=== PATIENT | male | born 1965 | race Caucasian/White ===

== ENCOUNTER 2016-10-23 11:03 | Observation (INO) | payer OTHER ==
--- NOTE | ~2016-10-23 | HP ---
History And Physical [id number] [place]. [address] NAME: REJI FERNANDEZ : 67 STATUS : ADM IN [facility]#: [id number] AGE: 51 ADM/REG DATE : 10/23/16 MR#: [id number] REPORT SERV DATE: 10/23/16 DICTATED BY: GIDEONFAUSTO EDI DATE: 10/23/16 REPORT STATUS : Draft TRANSCRIBED BY: MODL DATE: 10/23/16 DATE OF ADMISSION: 10/23/2016 CHIEF COMPLAINT: Left lower extremity DVT. HISTORY OF PRESENT ILLNESS: This is a 51-year-old gentleman with history of coronary artery disease and chronic left leg wound, presenting with a left lower extremity DVT. The patient actually follows with Dr. Johnson for his chronic left leg wound that he has had for the past few months. From Dr. Johnson's office, ultrasound was ordered and he had it done today. The ultrasound actually showed a left lower extremity DVT in the popliteal vein. Internal Medicine consultation was thus requested for direct admission of this patient for further care. The patient otherwise has been asymptomatic. The patient denies having had any swelling, pain, or redness over his left lower extremity. The patient also denies any chest pain or shortness of breath. The patient also denies any recent travels. The patient denies any history of known malignancy. The patient also denies recent surgery or even smoking. There is also no family history of blood clots. REVIEW OF SYSTEMS: The patient denies any fevers or chills. Also, 14-point review of systems reviewed and negative, other than mentioned above. MEDICATIONS: 1. Lipitor 40 mg p.o. daily. 2. Ecotrin 325 mg p.o. daily. 3. Lopressor 50 mg p.o. daily. 4. Augmentin 875 mg p.o. b.i.d. x10 days, which was started on 10/19. ALLERGIES: NKDA. PAST MEDICAL HISTORY: 1. Coronary artery disease. 2. Hyperlipidemia. PAST SURGICAL HISTORY: Cardiac stents. FAMILY HISTORY: Negative. SOCIAL HISTORY: The patient does not smoke, the patient has quit smoking about 7 years ago. The patient consumes alcohol every once in a while. The patient does not use any illicit drugs. The patient lives at home with his . 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 PHYSICAL EXAMINATION: VITAL SIGNS: Temperature 98.1, blood pressure 181/99, pulse 48, respiratory rate is 18, saturating 96% on room air. NEUROLOGIC: The patient is alert and oriented x3 with no focal neurologic deficits. History And Physical [address] [place]. [address] NAME: REJI FERNANDEZ : 67 STATUS : ADM IN [facility]#: [id number] AGE: 51 ADM/REG DATE : 10/23/16 MR#: [id number] REPORT SERV DATE: 10/23/16 DICTATED BY: FAUSTO MENESES DATE: 10/23/16 REPORT STATUS : Draft TRANSCRIBED BY: MARCELLA DATE: 10/23/16 GENERAL: The patient is obese, awake, does not appear to be in acute distress and he is cooperative. NECK: No JVD. No lymphadenopathy. Normal thyroid. CHEST: No midline sternotomy scar and no tenderness to palpation. LUNGS: Clear to auscultation bilaterally with normal respiratory effort on room air. CARDIOVASCULAR: Regular rate and rhythm with no murmurs, rubs, or gallops and PMI is nondisplaced. ABDOMEN: Soft and nontender with active bowel sounds and no organomegaly. EXTREMITIES: No edema. Normal distal pulses. No calf tenderness. The patient's left lower extremity is the same as the right, and there is no more swelling or redness compared to the right. SKIN: Clean, dry, warm, and intact. The patient has 2 x 2 cm circular nonhealing chronic wound on his left leg on the medial side. LABORATORY DATA: There are no labs. ASSESSMENT: This is a 51-year-old gentleman with history of coronary artery disease as well as chronic nonhealing left leg wound, presenting with a left lower extremity deep vein thrombosis. 1. Left lower extremity deep vein thrombosis, acute. 2. Chronic left leg wound, nonhealing. 3. Coronary artery disease. 4. Hyperlipidemia. PLAN: The plan is to admit the patient under telemetry monitoring for observation overnight. The patient will be started on anticoagulation with Lovenox as well as Coumadin. I will ask Case Management to evaluate the patient for potential NOAC therapy, instead of Coumadin. Otherwise, for the rest of the stable past medical conditions including coronary artery disease, hyperlipidemia, chronic left leg wound, et al., I will continue home medications. Standard DVT prophylaxis. The patient is full code at this time. YSC/MODL Fausto Meneses MD / [id number] CC: MD Jose Palacios III, M.D.
--- NOTE | ~2016-10-23 | DS ---
Discharge Summary [id number] [facility] [place] [id number] NAME: REJI FERNANDEZ : 67 STATUS : DIS [facility] PAT#: [id number] AGE: 51 ADM/REG DATE : 10/23/16 MR#: [id number] REPORT SERV DATE: 10/25/16 DICTATED BY: FAUSTO MENESES DATE: 10/24/16 REPORT STATUS : Draft TRANSCRIBED BY: MODL DATE: 10/24/16 ADMISSION DATE: 10/23/2016 DISCHARGE DATE: 10/24/2016 DISCHARGE DIAGNOSES: 1. Acute left lower extremity DVT, below-knee. 2. Chronic left leg wound. 3. Coronary artery disease. 4. Hyperlipidemia. 5. Morbid obesity. CONSULTS: None. PROCEDURES: None. HOSPITAL COURSE: This is a 51-year-old gentleman who was admitted to the hospital after he was found to have a positive lower extremity ultrasound for DVT. The patient was found to have a left popliteal vein thrombosis. For details, please refer to my own H and P. In summary, the patient was initiated on Lovenox anticoagulation along with Coumadin. The patient was monitored overnight, and the patient was given a choice between NOAC versus Coumadin. Unfortunately, due to his poor insurance status, the patient could only qualify for Lovenox and Coumadin. As the patient does not have a primary care physician, Case Management was involved in getting patient Lovenox as well as Coumadin and Coumadin Clinic appointments. The patient is now being discharged home in stable condition with close outpatient followup plans. DISPOSITION: Home. DISCHARGE MEDICATIONS: 1. Lovenox 1 mg/kg subcu q.12 hours for the next four days. 2. Coumadin 5 mg p.o. daily, with repeat of PT and INR within five days of discharge. FOLLOWUP: 1. Please follow up with PCP which will be assigned to him in the next one to two weeks. 2. Please follow up with Coumadin clinic, as will be scheduled for him within five days of discharge. Total of 25 minutes spent in coordinating this patient's discharge today. DICTATED BY: MD MIRI Palacios/MARCELLA Discharge Summary [facility] [address] [place]. [id number] NAME: REJI FERNANDEZ : 67 STATUS : DIS [facility]ia PAT#: [id number] AGE: 51 ADM/REG DATE : 10/23/16 MR#: [id number] REPORT SERV DATE: 10/25/16 DICTATED BY: FAUSTO MENESES DATE: 10/24/16 REPORT STATUS : Draft TRANSCRIBED BY: [facility] DATE: 10/24/16 Fausto Meneses MD / [id number] CC: Fausto Meneses MD
[2016-10-23] MEDS ORDERED: LIPITOR40 PO (12:14)
[2016-10-23] MEDS ORDERED: ASAEC PO (12:14)
[2016-10-23] MEDS ORDERED: LOP50 PO (12:15)
[2016-10-23] MEDS ORDERED: AUG875 PO (12:15)
[2016-10-23 15:32] LABS: BASOPHILS 0.3 %; BASOPHILS ABSOLUTE 0.03 10/3/uL (0.0-0.16); EOSINOPHILS 3.6 %; EOSINOPHILS ABSOLUTE 0.33 10/3/uL (0.0-0.53); HEMATOCRIT 41.9 % (40.0-51.0); HEMOGLOBIN 13.4 g/dL (13.6-17.8); IMMATURE GRANULOCYTES 0.2 %; IMMATURE GRANULOCYTES ABSOLUTE 0.02 10/3/uL (0.0-0.11); LYMPHOCYTES 27.3 %; LYMPHOCYTES ABSOLUTE 2.47 10/3/uL (0.67-4.30); MEAN CORPUSCULAR HEMOGLOB 27.6 pg (26.0-34.0); MEAN CORPUSCULAR VOLUME 86.4 fL (80-100); MEAN PLATELET VOLUME 9.4 fL (9.2-13.0); MONOCYTES 8.1 %; MONOCYTES ABSOLUTE 0.73 10/3/uL (0.21-1.20); NEUTROPHILS 60.5 %; NEUTROPHILS ABSOLUTE 5.48 10/3/uL (2.02-8.40); PLATELET COUNT 187 10/3/uL (150-400); RBC DISTRIBUTION WIDTH 14.9 % (12.0-16.0); RED CELL COUNT 4.85 10/6/uL (4.7-6.1); WHITE BLOOD CELLS 9.1 10/3/uL (4.5-10.5)
[2016-10-23 15:35] LABS: MANUAL DIFF NO %
[2016-10-23 15:42] LABS: INTERNATIONAL NORMAL RATI 1.1 UNITS (-); PARTIAL THROMBO TIME 31.9 SEC (22.5-37.2); PROTIME (NOT ORD) 14.4 SEC (12.0-14.5)
[2016-10-23 15:43] LABS: CALCIUM, SERUM 9.2 MG/DL (8.5-10.4); CHLORIDE, SERUM 107 MMOL/L (96-112); CO2 (CARBON DIOXIDE) 27 MMOL/L (24-34); CREATININE 1.35 MG/DL (0.70-1.30); GFR AFRICAN AMERICAN 70 ML/MIN (>=60); GFR NON AFRICAN AMERICAN 61 ML/MIN (>=60); GLUCOSE, SERUM 86 MG/DL (60-99); POTASSIUM, SERUM 3.8 MMOL/L (3.5-5.3); SODIUM, SERUM 137 MMOL/L (135-148)
[2016-10-23 15:44] LABS: BUN (BLOOD UREA NITROGEN) 22 MG/DL (6-23)
[2016-10-24 06:15] LABS: BASOPHILS 0.2 %; BASOPHILS ABSOLUTE 0.02 10/3/uL (0.0-0.16); EOSINOPHILS 3.3 %; EOSINOPHILS ABSOLUTE 0.32 10/3/uL (0.0-0.53); HEMATOCRIT 42.5 % (40.0-51.0); HEMOGLOBIN 13.8 g/dL (13.6-17.8); IMMATURE GRANULOCYTES 0.2 %; IMMATURE GRANULOCYTES ABSOLUTE 0.02 10/3/uL (0.0-0.11); LYMPHOCYTES 25.7 %; LYMPHOCYTES ABSOLUTE 2.49 10/3/uL (0.67-4.30); MEAN CORPUS HGB CONC 32.5 g/dL (32.0-36.0); MEAN CORPUSCULAR HEMOGLOB 27.9 pg (26.0-34.0); MEAN PLATELET VOLUME 9.2 fL (9.2-13.0); MONOCYTES 6.2 %; NEUTROPHILS 64.4 %; NEUTROPHILS ABSOLUTE 6.25 10/3/uL (2.02-8.40); PLATELET COUNT 197 10/3/uL (150-400); RBC DISTRIBUTION WIDTH 14.6 % (12.0-16.0); RED CELL COUNT 4.94 10/6/uL (4.7-6.1); WHITE BLOOD CELLS 9.7 10/3/uL (4.5-10.5)
[2016-10-24 06:16] LABS: MANUAL DIFF NO %
[2016-10-24 06:17] LABS: INTERNATIONAL NORMAL RATI 1.2 UNITS (-); PROTIME (NOT ORD) 15.1 SEC (12.0-14.5)
[2016-10-24 06:26] LABS: BUN (BLOOD UREA NITROGEN) 19 MG/DL (6-23); CALCIUM, SERUM 9.2 MG/DL (8.5-10.4); CHLORIDE, SERUM 107 MMOL/L (96-112); CO2 (CARBON DIOXIDE) 27 MMOL/L (24-34); CREATININE 1.36 MG/DL (0.70-1.30); GFR AFRICAN AMERICAN 70 ML/MIN (>=60); GFR NON AFRICAN AMERICAN 60 ML/MIN (>=60); GLUCOSE, SERUM 89 MG/DL (60-99); POTASSIUM, SERUM 3.9 MMOL/L (3.5-5.3); SODIUM, SERUM 135 MMOL/L (135-148)
[2016-10-24] MEDS ORDERED: C5 PO (18:35)
[2016-10-24] MEDS ORDERED: LOVENOX150 SC (18:39)
[2016-10-24] MEDS ORDERED: LOVENOX SC (18:40)
== END 2016-10-24 20:00 | disposition home or self-care (01) ==
LOC: 6NO 11:03
PROVIDERS: Internal Medicine
DX: I82.402 Acute embolism and thrombosis of unspecified deep veins of left lower extremity (principal); E78.5 Hyperlipidemia, unspecified; I25.10 Atherosclerotic heart disease of native coronary artery without angina pectoris; E66.01 Morbid (severe) obesity due to excess calories; Z79.899 Other long term (current) drug therapy; Z79.01 Long term (current) use of anticoagulants
CPT/HCPCS: 80048; 83036; 85025; 85610; 85730; 96372; A9270-GY; G0378